=== PATIENT | female | born 1985 | race Caucasian/White ===

== ENCOUNTER 2021-11-16 09:18 | Emergency (ER) | payer MEDICAID ==
[~2021-11-16] VITALS: Ht 162.6 cm; Wt 74.8 kg
--- NOTE | 2021-11-16 09:50 | NUR ---
[id number], AUDITORY HALLUCINATION AND RUNNING IN THE FREEWAY. DENIES SI WEB APPLICATION DEV SPECIALIST ADMITS TO USNG METH YESTERDAY. "I RELAPSED". THE PATIENT IS ALERT AND ORIENTED X3. DENIES HI. IN ROOM AIR AND DENIES SOB. RESPIRATION REGULAR AND UNLABORED. DENIES PAIN. WILL CONTINUE TO MONITOR THE PATIENT.
[2021-11-16] MEDS ORDERED: IV NS 0.9% 1,000 ML IV ONE (10:00)
[2021-11-16] MEDS ORDERED: LORAZEPAM INJ 2 MG/ML VIAL IV ONE (10:00)
[2021-11-16 10:25] LABS: BASOPHILS # (AUTO) 0.1 K/uL (0.0-0.2); BASOPHILS % (AUTO) 0.3 % (0.0-2.0); HEMATOCRIT 41 % (33-45); HEMOGLOBIN 13.7 g/dL (11.5-14.8); LYMPHOCYTES # (AUTO) 0.4 K/uL (0.8-4.8); LYMPHOCYTES % (AUTO) 2.4 % (20.0-44.0); MEAN CORPUSCULAR HGB CONC 33 g/dl (31.0-36.0); MEAN CORPUSCULAR VOLUME 86 fL (82-100); MONOCYTES # (AUTO) 0.6 K/uL (0.1-1.30); MONOCYTES % (AUTO) 3.1 % (2.0-12.0); NEUTROPHILS # (AUTO) 17.1 K/uL (1.8-8.9); NEUTROPHILS % (AUTO) 94.2 % (43.0-81.0); PLATELET COUNT (AUTO) 309 K/uL (150-450); RED BLOOD CELL COUNT(AUTO) 4.82 MIL/uL (4.0-5.2); WHITE BLOOD COUNT (AUTO) 18.1 K/uL (4.3-11.0)
[2021-11-16 10:40] LABS: BILIRUBIN,URINE NEGATIVE (NEGATIVE); LEUKOCYTE ESTERASE ,URINE NEGATIVE (NEGATIVE); NITRITE, URINE NEGATIVE (NEGATIVE); PH,URINE 6.5 (5.0-8.0); PROTEIN,URINE NEGATIVE (NEGATIVE); UGLUCOSE NEGATIVE (NEGATIVE); UROBILINOGEN,URINE 0.2 EU/dL (0.2)
[2021-11-16 10:42] LABS: COLOR,URINE STRAW (YELLOW)
[2021-11-16] MEDS ORDERED: LORAZEPAM INJ 2 MG/ML VIAL ONE (10:44)
[2021-11-16 10:51] LABS: CALCIUM, SERUM 9.1 mg/dL (8.5-10.1); CARBON DIOXIDE 28 mmol/L (21-32); CHLORIDE 100 mmol/L (98-107); CREATININE 1.3 mg/dL (0.6-1.3); GLUCOSE 95 mg/dL (74-106); POTASSIUM 2.9 mmol/L (3.5-5.1); SODIUM SERUM 140 mmol/L (136-145); UREA NITROGEN, BLOOD 21 mg/dL (7-18)
[2021-11-16 10:58] LABS: BACTERIA,URINE None seen /HPF (None Seen); RBC,URINE 0-2 /HPF (0-2); SQUAMOUS EPITHELIAL CELL,UR Few /HPF (None Seen)
[2021-11-16 11:03] LABS: ALANINE AMINOTRANSFERASE 32 U/L (12-78); ALBUMIN 4.7 g/dL (3.4-5.0); ALCOHOL, BLOOD < 3 mg/dL (0-0); ALKALINE PHOSPHATASE 84 U/L (46-116); ASPARTATE AMINOTRANSFERASE 39 U/L (15-37); BILIRUBIN,DIRECT 0.2 mg/dL (0.0-0.2); BILIRUBIN,TOTAL 0.7 mg/dL (0.2-1.0); TOTAL PROTEIN, SERUM 8.7 g/dL (6.4-8.2)
[2021-11-16 11:27] LABS: ACETAMINOPHEN 0 ug/ml (10-30)
[2021-11-16] MEDS ORDERED: POTASSIUM CHLORIDE 20 MEQ TAB.PRT.SR PO ONE ×2 (11:30→11:47)
--- NOTE | 2021-11-16 11:55 | NUR ---
SW AT BEDSIDE
--- NOTE | 2021-11-16 12:23 | NUR ---
SS Consult: Pt. Is a 36-year-old female. Pt. demonstrates adequate insight to the reason for hospitalization. Per pt., she was brought to hospital by [employer] due to trying to hurt herself. Pt. was oriented x2, alert, and cooperative. During interview, pt. was capable of following directions, made appropriate eye-contact, and appeared groomed. Pt.'s speech was at a normal rate. Pt.'s mood was elevated and anxious. SW explored pt.'s hx of mental health and substance abuse. Pt. reported no hx of mental health, suicidal or homicidal ideation. Pt. denies auditory hallucinations, visual hallucinations, paranoia, or delusions. Per pt., her drug of choice is methamphetamine. Pt. stated that she has been sober for two years and relapsed yesterday. Pt. reported that she has been homeless for couple of weeks. She was residing with her dad but got kicked out. Pt. stated that she wants a rehab. Pt. seems to be a little confused and tired when answering questions. Pt. was not able to provide SS number to update face sheet. SW will follow-up once pt. is more oriented.
--- NOTE | 2021-11-16 14:40 | NUR ---
Contact inspector and mender Madison once pt. is more alert and oriented. Madison [[phone]].
--- NOTE | 2021-11-16 20:51 | NUR ---
PT BECOMING INCREASINGLY AGITATED AND YELLING. DR LOU NOTIFIED.
[2021-11-16] MEDS ORDERED: OLANZAPINE 10 MG VIAL IM ONE ×2 (20:53→21:00)
--- NOTE | 2021-11-16 20:54 | NUR ---
COVID SWAB DONE AND SENT TO LAB
[2021-11-17] MEDS ORDERED: LORAZEPAM INJ 2 MG/ML VIAL ONE (03:30)
[2021-11-17] MEDS ORDERED: LORAZEPAM INJ 2 MG/ML VIAL IM ONE (03:30)
--- NOTE | 2021-11-17 03:50 | NUR ---
FAWN - FRAME FIXER PAGED FOR EVAL.
--- NOTE | 2021-11-17 07:15 | NUR ---
ASSESSED PT ON BED ASLEEP EASILY AROUSABLE, NOT IN RESPIRATORY DISTRESS, V/S STABLE, KEPT RESTED AND COMFORTABLE. WILL CONTINUE TO MONITOR.
--- NOTE | 2021-11-17 07:40 | NUR ---
BREAKFAST TRAY PROVIDED.
--- NOTE | 2021-11-17 08:38 | NUR ---
CALLED SW FOR EVAL.
[2021-11-17] MEDS ORDERED: LORAZEPAM 1 MG TABLET ONE (08:52)
--- NOTE | 2021-11-17 08:55 | NUR ---
IV removed. Catheter intact and site benign. Pressure and 4x4 applied to site. No bleeding noted. Patient discharged to home in stable condition. Written and verbal after care instructions given. Patient verbalizes understanding of instruction.
--- NOTE | 2021-11-17 08:55 | NUR ---
"SS consult requested for safe discharge planning. The pt. is a 36 year old female experiencing homelessness. The pt. has been cleared by mental health clinicianKlarissa and is ready for DC.The pt. is currently alert & oriented x 4 and makes good eye contact. The pt. remain calm & cooperative throughout interview. Pt. has euthymic mood & affect and pt.'s speech & thought process are WNL. Pt. is ambulatory and independent with all ADL's. SW offered pt. correction placement and pt. is agreeable. SW provided pt. with TAP card for bus transport and bur route direction to [facility] [[id number] [facility] [address]]. Pt. expressed understanding and is agreeable to plan. Pt. signed homeless waiver and it was place dint he pt.'s chart. RISA provided pt. with the following resources and pt. accepted them : Year-round shelters: [facility] [address] [address] ; [facility] [address] [place] [address]; [facility] [address] [facility] [address] Winter Shelters: SPA 2 | [facility] Address: Confidential (call for location ) Population Served: Coed # of Beds: 57 SPA 4 | [facility] Provider: [facility] Address: [address] [place] [address], [address] # of Beds: 49 Population Served: Coed SPA 6 | [facility] Provider: [facility] Last Address: [address] [id number] # of Beds: 49 Population Served: Coed [facility] Provider: Violeta Cruz [facility] Address: [address] [facility] [address] # of Beds: 20 Population Served: Women [facility] Facility Provider: [facility] Last Address: [address] [facility] [address] # of Beds: 30 Population Served: Women SPA 8 | [facility] Former Library Provider: Antonette of Randi Address: [address] [facility] [address] # of Beds: 65 Population Served: Coed Hygiene: [facility]: [address] [place]. [place] ; [facility] [address] [facility] [place] ; [facility] [address] Katy Lauren . Food Resources: [place] [facility] at [facility]- [address] [place]; Meet Each Need with Dignity ([facility]) [address] [address] [place]; [facility] [address] [facility]; [facility] [address] [facility] Hospital[facility] [place]. Mental Health resources provided: [facility] [address] [place], [place] [phone] ; [facility] [address] [facility] [address], [place], [place] [id number] ; [place] [facility] [address], [place] [phone] ; [facility] [address] [place], [place] [address] Healthcare Clinics: [facility] [address] [facility], [address] [place]. [place] ; [facility] [address] [place] [address]; [facility] [place] [address] [facility]. [place] [phone] Counseling--Outpatient [facility] [address], [address] [place], [place] [phone] (Specializes in in-depth psychotherapy for emotional distress: anxiety, depression, interpersonal conflicts, life transitions, childhood abuse) [facility] [address] [place] [address] (Assist with solving problem marital difficulties, separation & divorce, aging parents, & grief, chronic & terminal illness) [facility] [address] [place] [address] (Deal with loss & grief, anxiety, marital difficulties) Homebound/Mental Health Services [address] [facility], [address] [place], [place] [phone] (Provide in-home mental services to people who are incapable of leaving their homes) [facility] of [facility] Elderly Senior Service/Resource Center [address] [place] [address] [facility] [address] [facility]. [place], [place] [id number] PSYCHIATRIC OUTPATIENT SERVICES [facility] Partial Hospitalization and Intensive Outpatient Program (Managed Care and [place] Only)[address] [facility] [phone] [facility] Partial Hospitalization and Outpatient [id number] [facility]. [address] [place], [place] [phone] [facility] [place] [id number] [facility]. [address] [place], [place] [phone] [facility] Partial Hospitalization and Outpatient Ogsqjoo49783 [place], [phone] Substance Abuse resources provided included: [facility] Substance Abuse Self-Helpline (SAS) ; CRI -HELP [address] [facility]. [place] [address] ; [facility] [address] [facility] [address] ; [facility] [address] [place] ajmesCentral Islip Psychiatric [facility] [address] ; [facility] [address] [facility] [address] ; [facility] [address] [facility] [address] ; [facility] [address] [facility] [phone] ; [facility] Substance Abuse Helpline(SAS)-[facility] ; [facility] Family Counseling ; [facility] [place]; [facility] [place]; [facility] [place]; [facility] Krish [place]; [place] [facility] [place]; [facility] [place]; [facility] [place]; [facility] [place]; Alcoholics Anonymous -SFV; Hn-Mfox-Voyattr ; Marijuana Anonymous -SFV; Narcotics Anonymous www.na.org;"
[2021-11-17 08:56] VITALS: BP 121/72
[2021-11-17] MEDS ORDERED: LORAZEPAM 1 MG TABLET PO ONE (09:00)
== END 2021-11-17 08:57 | disposition home or self-care (01) ==
LOC: ER 09:20
DX: R45.851 Suicidal ideations (principal); F15.10 Other stimulant abuse, uncomplicated; R00.0 Tachycardia, unspecified; Z20.822 Contact with and (suspected) exposure to COVID-19; Z91.14 Patient's other noncompliance with medication regimen; Z91.52 Personal history of nonsuicidal self-harm; Z59.00 Homelessness unspecified; D72.829 Elevated white blood cell count, unspecified
CPT/HCPCS: 36415; 80048; 80076; 80143; 80307; 80320; 81001; 84703; 85025; 87426; 93005; 96361; 96372; 96374; 99285; C9803; J2060; J3490; J7030; G0480